=== PATIENT | female | born 1995 | race Hispanic/Latino ===

== ENCOUNTER 2019-04-17 11:37 | Emergency (ER) | payer OTHER ==
[~2019-04-17] VITALS: Ht 160 cm; Wt 70.0 kg
[2019-04-17] MEDS ORDERED: FLEXERIL5 M1 PO (14:36)
[2019-04-17 14:45] VITALS: BP 110/74
== END 2019-04-17 14:45 | disposition home or self-care (01) | DRG 914 ==
LOC: ED 11:37 → EDBD 11:37 → ED 12:06
DX: S09.90XA Unspecified injury of head, initial encounter (principal); S16.1XXA Strain of muscle, fascia and tendon at neck level, initial encounter; V98.8XXA Other specified transport accidents, initial encounter; Y93.89 Activity, other specified; Y92.73 Farm field as the place of occurrence of the external cause; Y99.0 Civilian activity done for income or pay